=== PATIENT | male | born 1990 | race Caucasian/White ===

== ENCOUNTER → 2020-02-24 | Outpatient (CLI) | payer OTHER ==
--- NOTE | 2020-02-24 14:35 | XR ---
EXAMINATION TYPE: XR knee complete LT DATE OF EXAM: 02/24/2020 COMPARISON: None HISTORY: 29 year-old male left knee pain TECHNIQUE: 3 views FINDINGS: Moderate to marked prepatellar soft tissue swelling. No sizable joint effusion. No acute fracture, keita bluxation, dislocation. IMPRESSION: Prepatellar bursitis. No acute osseous abnormality seen.
== END | disposition home or self-care (01) ==
LOC: RADXRYALE 11:32
PROVIDERS: ATTEND Family Medicine
DX: M70.42 Prepatellar bursitis, left knee (principal)